=== PATIENT | male | born 1950 | race Caucasian/White ===

== ENCOUNTER 2016-05-15 14:10 | Inpatient (IN) | payer SELFPAY ==
[2016-05-15 15:27] LABS: Alanine Aminotransferase 32 units/L (7-56); Albumin 4.3 g/dL (3.9-5); Albumin/Globulin Ratio 1.3 %; Alkaline Phosphatase 87 units/L (35-129); Bilirubin,Total 0.4 mg/dL (0.1-1.2); Blood Urea Nitrogen 15 mg/dL (9-20); Calcium 9.4 mg/dL (8.4-10.2); Carbon Dioxide 23 mmol/L (22-30); Chloride 96.7 mmol/L (98-107); Glucose 276 mg/dL (75-100); Potassium 4.5 mmol/L (3.6-5.0); Sodium 137 mmol/L (137-145); Total Protein 7.7 g/dL (6.3-8.2)
[2016-05-15 15:28] LABS: Anion Gap 22 mmol/L
[2016-05-15 15:33] LABS: Eosinophils % (Auto) 0.7 % (0.0-4.3); Hemoglobin 14.5 gm/dl (11.8-15.2); Mean Corpuscular HGB Conc 34 % (32-34); Mean Corpuscular Hemoglobin 33 pg (28-32); Mean Corpuscular Volume 95 fl (84-94); Platelet Count 214 K/mm3 (140-440); Red Blood Count 4.45 M/mm3 (3.65-5.03); Red Cell Distribution Width 14.1 % (13.2-15.2); White Blood Count 7.1 K/mm3 (4.5-11.0)
[2016-05-15 15:58] LABS: INR 0.91 (0.87-1.13)
[2016-05-15] MEDS ORDERED: PROVENTIL IH ONE (16:59)
[2016-05-15] MEDS ORDERED: ROCEPHIN/NS 1 GM/50 ML 1 GM/50 ML BAG IV ONE ×2 (16:59→19:14)
[2016-05-15] MEDS ORDERED: NACL 0.9% 1000 ML 1,000 ML IV ONE (16:59)
[2016-05-15] MEDS ORDERED: ZITHROMAX PO ONE (16:59)
--- NOTE | 2016-05-15 17:00 | Emergency Department Report ---
ED General Adult HPI - General Chief complaint: Upper Respiratory Infection Stated complaint: POSS PNUEMONIA Time Seen by Provider: 05/15/16 16:47 Source: patient, family, RN notes reviewed Mode of arrival: Ambulatory Limitations: Language Barrier (patient and family declined formal heavy truck driver. They request to translate for the patient.) - History of Present Illness Initial comments: This is a 66-year-old male, previously unknown to me. Has a past medical history of diabetes. Moved here from [place] approximately 3 weeks ago. History is obtained by speaking to the patient's family and to the patient. Of note, family and patient declined formal heavy truck driver, and a request to translate. Patient presents to the ER complaining of cough, mucus production, shortness of breath subjective fever. Symptoms present for the past 3 days. They are constant. They decrease with rest. They increase with physical exertion. There is no chest pain. Positive mucous production. There is no leg pain. There is no leg swelling. -: Gradual Consistency: intermittent Improves with: rest Worsens with: movement Associated Symptoms: cough, shortness of breath. denies: chest pain - Related Data Allergies Allergy/AdvReac Type Severity Reaction Status Date / Time No Known Allergies Allergy Verified 05/15/16 17:00 ED Review of Systems ROS: Stated complaint: POSS PNUEMONIA Other details as noted in HPI Constitutional: malaise Eyes: denies: eye discharge Respiratory: cough Cardiovascular: denies: chest pain Gastrointestinal: denies: abdominal pain Genitourinary: as per HPI Musculoskeletal: as per HPI Skin: as per HPI Neurological: as per HPI Psychiatric: as per HPI Hematological/Lymphatic: as per HPI ED Past Medical Hx - Past Medical History Hx Diabetes: Yes - Surgical History Past Surgical History?: No - Social History Smoking Status: Former Smoker Substance Use Type: Alcohol ED Physical Exam - General Limitations: Language Barrier General appearance: alert, in no apparent distress - Head Head exam: Present: atraumatic, normocephalic - Eye Eye exam: Present: normal appearance, EOMI. Absent: nystagmus - ENT ENT exam: Present: normal exam, normal orophraynx, mucous membranes moist - Neck Neck exam: Present: normal inspection - Respiratory Respiratory exam: Present: wheezes, rhonchi. Absent: respiratory distress - Cardiovascular Cardiovascular Exam: Present: regular rate, normal rhythm, normal heart sounds. Absent: irregular rhythm, systolic murmur, diastolic murmur, rubs, gallop - GI/Abdominal GI/Abdominal exam: Present: soft, normal bowel sounds. Absent: distended, tenderness, guarding, rebound, rigid, pulsatile mass - Rectal Rectal exam: Present: deferred - Extremities Exam Extremities exam: Present: normal inspection, full ROM, normal capillary refill. Absent: tenderness, pedal edema, joint swelling, calf tenderness - Back Exam Back exam: Present: normal inspection, full ROM. Absent: tenderness, CVA tenderness (R), CVA tenderness (L), muscle spasm, paraspinal tenderness, vertebral tenderness - Neurological Exam Neurological exam: Present: alert, normal gait, other (Extraocular movements intact. Tongue midline. No facial droop. Facial sensation intact to light touch in the V1, V2, V3 distribution bilaterally. 5 and 5 strength in 4 extremities.. Sensation is intact to light touch in 4 extremities.). Absent: motor sensory deficit - Psychiatric Psychiatric exam: Present: normal affect, normal mood - Skin Skin exam: Present: warm, dry, intact, normal color. Absent: rash ED Course Vital Signs 05/15/16 05/15/16 05/15/16 14:29 17:16 17:33 Temperature 98.9 F Pulse Rate 88 Pulse Rate [ 92 H Posterior Bilateral Throughout] Pulse Rate [ Posterior Bilateral] Respiratory 20 Rate Respiratory 20 Rate [Posterior Bilateral Throughout] Respiratory Rate [Posterior Bilateral] Blood Pressure 136/87 Blood Pressure [Left] O2 Sat by Pulse 98 931 H Oximetry 05/15/16 05/15/16 05/15/16 17:50 17:58 18:37 Temperature Pulse Rate 109 H Pulse Rate [ 103 H Posterior Bilateral Throughout] Pulse Rate [ Posterior Bilateral] Respiratory 22 Rate Respiratory 20 Rate [Posterior Bilateral Throughout] Respiratory Rate [Posterior Bilateral] Blood Pressure Blood Pressure 153/88 [Left] O2 Sat by Pulse 93 92 Oximetry 05/15/16 05/15/16 05/15/16 20:07 20:15 20:16 Temperature Pulse Rate Pulse Rate [ Posterior Bilateral Throughout] Pulse Rate [ 98 H 100 H Posterior Bilateral] Respiratory Rate Respiratory Rate [Posterior Bilateral Throughout] Respiratory 22 22 Rate [Posterior Bilateral] Blood Pressure Blood Pressure [Left] O2 Sat by Pulse 93 Oximetry 05/15/16 21:20 Temperature Pulse Rate 100 H Pulse Rate [ Posterior Bilateral Throughout] Pulse Rate [ Posterior Bilateral] Respiratory 22 Rate Respiratory Rate [Posterior Bilateral Throughout] Respiratory Rate [Posterior Bilateral] Blood Pressure Blood Pressure 157/89 [Left] O2 Sat by Pulse 92 Oximetry - Reevaluation(s) Reevaluation #1: 05/15/16 17:07 Differential diagnosis: Bronchitis, hypoglycemia, pneumonia Assessment and plan: 66-year-old male who was sent to the ER from a local clinic for hyperglycemia, pulse ox of 92% on room air, positive fever, chest x- ray that suggests right lower lobe pneumonia. Patient is moderately to severely shortness of breath with minimal physical ambulation. He desaturates when laying flat. ABG is pending. We will treat for presumed community-acquired pneumonia with albuterol, normal saline, ceftriaxone, azithromycin. Blood cultures are ordered. Case is discussed with the Hospital physician, Dr. Iraheta, who accepts the patient to his service. Abnormal EKG appreciated, patient reports no chest pain. Reevaluation #2: 05/15/16 17:45 arterial blood gas demonstrates hypoxemic respiratory failure with a PaO2 of 59, with evidence of mostly compensated respiratory alkalosis, pH is within normal limits, blood PaCO2 is decreased at 29. ED Medical Decision Making - Lab Data Result diagrams: 05/15/16 14:54 05/15/16 14:54 Vital Signs 05/15/16 14:29 Temperature 98.9 F Pulse Rate 88 Respiratory 20 Rate Blood Pressure 136/87 O2 Sat by Pulse 98 Oximetry Lab Results 05/15/16 05/15/16 05/15/16 Range/Units 14:33 14:54 14:54 WBC 7.1 (4.5-11.0) K/mm3 RBC 4.45 (3.65-5.03) M/mm3 Hgb 14.5 (11.8-15.2) gm/dl Hct 42.0 (35.5-45.6) % MCV 95 H (84-94) fl MCH 33 H (28-32) pg MCHC 34 (32-34) % RDW 14.1 (13.2-15.2) % Plt Count 214 (140-440) K/mm3 Lymph % (Auto) 14.7 (13.4-35.0) % Parker % (Auto) 7.0 (0.0-7.3) % Eos % (Auto) 0.7 (0.0-4.3) % Baso % (Auto) 1.0 (0.0-1.8) % Lymph # 1.0 L (1.2-5.4) K/mm3 Parker # 0.5 (0.0-0.8) K/mm3 Eos # 0.0 (0.0-0.4) K/mm3 Baso # 0.1 (0.0-0.1) K/mm3 Seg Neutrophils % 76.6 H (40.0-70.0) % Seg Neutrophils # 5.4 (1.8-7.7) K/mm3 PT 12.2 (12.2-14.9) Sec. INR 0.91 (0.87-1.13) VBG pH (7.320-7.420) Sodium (137-145) mmol/L Potassium (3.6-5.0) mmol/L Chloride (98-107) mmol/L Carbon Dioxide (22-30) mmol/L Anion Gap mmol/L BUN (9-20) mg/dL Creatinine (0.8-1.5) mg/dL Estimated GFR ml/min BUN/Creatinine Ratio % Glucose (75-100) mg/dL POC Glucose 303 H (70-105) Lactic Acid (0.7-2.0) mmol/L Calcium (8.4-10.2) mg/dL Total Bilirubin (0.1-1.2) mg/dL AST (5-40) units/L ALT (7-56) units/L Alkaline Phosphatase (35-129) units/L Total Protein (6.3-8.2) g/dL Albumin (3.9-5) g/dL Albumin/Globulin Ratio % 05/15/16 05/15/16 05/15/16 Range/Units 14:54 14:54 14:54 WBC (4.5-11.0) K/mm3 RBC (3.65-5.03) M/mm3 Hgb (11.8-15.2) gm/dl Hct (35.5-45.6) % MCV (84-94) fl MCH (28-32) pg MCHC (32-34) % RDW (13.2-15.2) % Plt Count (140-440) K/mm3 Lymph % (Auto) (13.4-35.0) % Parker % (Auto) (0.0-7.3) % Eos % (Auto) (0.0-4.3) % Baso % (Auto) (0.0-1.8) % Lymph # (1.2-5.4) K/mm3 Parker # (0.0-0.8) K/mm3 Eos # (0.0-0.4) K/mm3 Baso # (0.0-0.1) K/mm3 Seg Neutrophils % (40.0-70.0) % Seg Neutrophils # (1.8-7.7) K/mm3 PT (12.2-14.9) Sec. INR (0.87-1.13) VBG pH 7.413 (7.320-7.420) Sodium 137 (137-145) mmol/L Potassium 4.5 (3.6-5.0) mmol/L Chloride 96.7 L (98-107) mmol/L Carbon Dioxide 23 (22-30) mmol/L Anion Gap 22 mmol/L BUN 15 (9-20) mg/dL Creatinine 1.0 (0.8-1.5) mg/dL Estimated GFR > 60 ml/min BUN/Creatinine Ratio 15.00 % Glucose 276 H (75-100) mg/dL POC Glucose (70-105) Lactic Acid 2.3 H* (0.7-2.0) mmol/L Calcium 9.4 (8.4-10.2) mg/dL Total Bilirubin 0.4 (0.1-1.2) mg/dL AST 25 (5-40) units/L ALT 32 (7-56) units/L Alkaline Phosphatase 87 (35-129) units/L Total Protein 7.7 (6.3-8.2) g/dL Albumin 4.3 (3.9-5) g/dL Albumin/Globulin Ratio 1.3 % - EKG Data When compared to previous EKG there are: previous EKG unavailable 05/15/16 17:09 normal sinus, 88 bpm, right superior axis deviation, incomplete right bundle branch block, QTC 462 ms, not morphologically consistent with STEMI , abnormal EKG - Radiology Data Radiology results: image reviewed interpreted by me: X-ray chest demonstrates right lower lobe infiltrate. Consistent with pneumonia. Critical care attestation.: If time is entered above; I have spent that time in minutes in the direct care of this critically ill patient, excluding procedure time. ED Disposition Clinical Impression: Dyspnea Qualifiers: Dyspnea type: shortness of breath Qualified Code(s): R06.02 - Shortness of breath Disposition: OP ADMITTED IP TO THIS HOSP Is pt being admited?: Yes Condition: Stable
[2016-05-15 17:40] LABS: ISTAT Base Excess -5; ISTAT DEVICE 0; ISTAT HCO3 19.3; ISTAT PCO2 29.6 (35-45); ISTAT PH 7.421 (7.35-7.45); ISTAT PO2 59 (80-105); ISTAT SO2 91; ISTAT TCO2 20
--- NOTE | 2016-05-15 17:44 | History and Physical Report ---
History of Present Illness Date of examination: 05/15/16 Chief complaint: Cough History of present illness: Patient is 66 -year-old man with history of type 2 diabetes mellitus just moved here from [place] about 3 weeks ago and speaks little Japanese and requests his son to interpret Bahraini. Symptoms started about 3 or 4 days ago with worsening severe constant greenish yellow cough, subjective fevers, chills and shortness of breath. He denies chest pains, severe headaches, nausea, vomiting or abdominal pains. Past History Past Medical History: diabetes, other Past Surgical History: No surgical history Social history: full code (vague history given on alcohol consumption). denies : smoking, prescription drug abuse, IV drug use Family history: no significant family history Medications and Allergies Allergies Allergy/AdvReac Type Severity Reaction Status Date / Time No Known Allergies Allergy Verified 05/15/16 17:00 Active Meds: Active Medications Enoxaparin Sodium (Lovenox) 40 mg SUB-Q QDAY LIDIA Sodium Chloride (Nacl 0.9% 1000 Ml) 1,000 mls @ 999 mls/hr IV ONCE ONE Stop: 05/15/16 17:59 Review of Systems All systems: negative (as HPI and all other ROS reviewed and negative.) Exam - Physical Exam Narrative exam: GEN: WDWN, NAD, AWAKE, ALERT, ORIENTATED HEENT: NCAT, PERRL, EOMI, OP CLEAR NECK: SUPPLE, NO THYROMEGALY, NO JVD, NO LAD CVS: RRR, NORMAL S1S2 LUNGS/CHEST: Bilateral wheezing, coarse breath sounds right base, NORMAL CHEST EXPANSION B, GOOD AIR ENTRY B ABD: SOFT NTND, GBS, NO REBOUND OR GUARDING EXT/SKIN: NO SIGNIFICANT EDEMA OR RASH MSK: FROM X 4 EXTREMITIES NEURO: CN 2-12 GROSSLY INTACT, NO FOCAL DEFICITS PSY: CALM - Constitutional Vitals: Temp Pulse Resp BP Pulse Ox 98.9 F 92 H 20 136/87 931 H 05/15/16 14:29 05/15/16 17:33 05/15/16 17:33 05/15/16 14:29 05/15/16 17:16 Results - Labs CBC & Chem 7: 05/15/16 14:54 05/15/16 14:54 Labs: Abnormal lab results 02/05/17 02/05/17 02/05/17 Range/Units 14:33 14:54 14:54 MCV 95 H (84-94) fl MCH 33 H (28-32) pg Lymph # 1.0 L (1.2-5.4) K/mm3 Seg Neutrophils % 76.6 H (40.0-70.0) % Chloride 96.7 L (98-107) mmol/L Glucose 276 H (75-100) mg/dL POC Glucose 303 H (70-105) Lactic Acid (0.7-2.0) mmol/L 05/15/16 Range/Units 14:54 MCV (84-94) fl MCH (28-32) pg Lymph # (1.2-5.4) K/mm3 Seg Neutrophils % (40.0-70.0) % Chloride (98-107) mmol/L Glucose (75-100) mg/dL POC Glucose (70-105) Lactic Acid 2.3 H* (0.7-2.0) mmol/L Assessment and Plan Patient is 66 -year-old man with history of type 2 diabetes mellitus just moved here from [place] about 3 weeks ago and speaks little Japanese and requests his son to interpret Bahraini. Symptoms started about 3 or 4 days ago with worsening severe constant greenish yellow cough without aggravating or relieving factors associated with subjective fevers, chills and shortness of breath. He denies chest pains, severe headaches, nausea, vomiting or abdominal pains. 1. RLL pneumonia, viewed with ED physician, possible early sepsis: admit, iv abx , 2. Uncontrolled type 2 dm: add ssi
[2016-05-15] MEDS ORDERED: D50W (25GM) IV PRN (17:48)
[2016-05-15] MEDS ORDERED: MUCINEX ER PO PRN (17:49)
[2016-05-15] MEDS ORDERED: ZOFRAN IV PRN (17:50)
[2016-05-15] MEDS ORDERED: TYLENOL PO PRN (17:50)
--- NOTE | 2016-05-15 17:50 | XRay Report ---
FINAL REPORT PROCEDURE: XR CHEST ROUTINE 2V TECHNIQUE: PA and lateral chest radiographs were obtained. CPT 93700 HISTORY: r/o pnuemonia COMPARISON: No prior studies are available for comparison. FINDINGS: Heart: Normal contour. Mediastinum/Vessels: Prominent central vessels. Lungs/Pleural space: Patchy right lung base airspace atelectasis or infiltrate. No effusion or pneumothorax is seen Bony thorax: No acute osseous abnormality. Other: IMPRESSION: Patchy right lung base atelectasis or infiltrate.
[2016-05-15] MEDS ORDERED: REGLAN IV PRN (17:51)
[2016-05-15] MEDS ORDERED: NACL 0.9% 1000 ML 1,000 ML IV SCH (18:00)
[2016-05-15 18:51] LABS: Creatine Kinase MB 1.6 ng/mL (0.0-4.0)
[2016-05-15 18:52] LABS: Creatine Kinase 77 units/L (55-170)
[2016-05-15] MEDS ORDERED: ZITHROMAX ONE (19:15)
[2016-05-15] MEDS ORDERED: NACL 0.9% 1000 ML 1,000 ML ONE (19:15)
[2016-05-15] MEDS: DUONEB 0.5 MG-3 MG/3 ML SOLN IH SCH (20:07)
[2016-05-15] MEDS: NOVOLOG SUB-Q SCH (21:30)
[2016-05-16 00:49] LABS: Creatine Kinase 84 units/L (55-170); Creatine Kinase MB 1.2 ng/mL (0.0-4.0)
[2016-05-16 04:50] LABS: Bilirubin,Urine Negative (Negative); Blood,Urine Trace (Negative); Ketones,Urine Trace mg/dL (Negative)
[2016-05-16 04:51] LABS: Leukocyte Esterase,Urine Negative (Negative); Nitrite,Urine Negative (Negative)
[2016-05-16 07:12] LABS: Hematocrit 38.3 % (35.5-45.6); Mean Corpuscular HGB Conc 34 % (32-34); Mean Corpuscular Hemoglobin 32 pg (28-32); Mean Corpuscular Volume 94 fl (84-94); Platelet Count 189 K/mm3 (140-440); Red Blood Count 4.08 M/mm3 (3.65-5.03); Red Cell Distribution Width 14.1 % (13.2-15.2); White Blood Count 5.8 K/mm3 (4.5-11.0)
[2016-05-16 07:30] LABS: BUN/Creatinine Ratio 14.44; Blood Urea Nitrogen 13 mg/dL (9-20); Calcium 8.6 mg/dL (8.4-10.2); Carbon Dioxide 20 mmol/L (22-30); Chloride 99.5 mmol/L (98-107); Glucose 265 mg/dL (75-100); Potassium 3.7 mmol/L (3.6-5.0); Sodium 138 mmol/L (137-145)
[2016-05-16 07:37] LABS: Anion Gap 22 mmol/L
[2016-05-16] MEDS: DUONEB 0.5 MG-3 MG/3 ML SOLN IH SCH ×2 (07:44→13:30)
[2016-05-16] MEDS: NOVOLOG SUB-Q SCH ×3 (08:54→17:20)
--- NOTE | 2016-05-16 09:10 | Admit Criteria Form ---
Admission Criteria Documentation: PNEUMONIA, COMMUNITY ACQUIRED Clinical Indications for Admission to Inpatient Care ( Place 'X' for any and all applicable criteria): Admission is indicated for ANY ONE of the following (1)(2)(3): [X]I. Hypoxemia indicated by ANY ONE of the following: [X]a) Oxygen saturation less than 90% while breathing room air [X]b) PO2 less than 60 mm Hg (8.0 kPa) while breathing room air [ ]c) Chronic lung disease with significant deterioration from baseline oxygenation [X]II. Appropriate diagnostic testing and treatment unavailable in outpatient or recovery facility (eg,testing or infection control measures unavailable(10) [ ]III. Moderate-risk or high-risk category patients (Pneumonia Severity Index (PSI) class IV or V, or CURB-65 score of 3 or greater). [ ]IV. Outpatient treatment failure as indicated by ANY ONE of the following(9) : [ ]a) Failure to respond to antibiotic (eg, resistant organism) [ ]b) Clinically significant adverse effects from medication (eg, vomiting) [ ]c) Complications of pneumonia (eg, empyema, bacteremia) [ ]d) Significant worsening of comorbid cond necessitating inpatient care (eg, chronic heart failure) [ ]V. Intermediate-risk category patients (eg, PSI class III or CURB-65 score 2) who do not improve with initial therapy and observation. [ ]. Immunocompromised patients (eg, AIDS, chronic steroid use) at moderate or high risk based on clinical evaluation. [ ]VII. Complicated pleural effusions (eg, exudative, loculated) [ ]VIII.Hemodynamic instability [ ] IX. Altered mental status that is severe or persistent. [ ]X. Dehydration that is severe or persistent. [ ]XI. Bacteremia [ ]XII. Respiratory finding (eg. tachypnea) that do not respond to outpatient or observation care treatment Extended stay beyond goal length of stay may be needed for (20) [ ]a) Unclear diagnosis [ ]b) Pleural disease [ ]c) Severe pneumonia or treatment failure (25 [ ]d) Respiratory failure (anticipate invasive or noninvasive ventilatory support) [ ]e) Abnormal serum electrolytes (serum Na concentration less than 135 mEq/L (mmol/L) (32)(33) [ ]f) Clinically significant comorbid illness (eg, heart failure, atrial fibrillation with rapid heart rate, alcohol withdrawal, renal insufficiency)(34)(35) [ ]g) Comorbid acute exacerbation of COPD(36) [ ]h) Concomitant diagnosis of malignancy that may be associated with malnutrition, immunologic impairment, or bronchial obstruction. [ ]i) Concomitant altered mental status [ ]j) Culture-identified Gram-negative or antibiotic-resistant organism (eg, Pseudomonas, methicillin-resistant Staphylococcus aureus)(30) [ ]k) Healthcare-associated pneumonia The original [employer] content created by [employer] has been revised. The portions of the content which have been revised are identified through the use of italic text or in bold, and [facility] has neither reviewed nor approved the modified material. All other unmodified content is copyright [facility]. Please see references footnoted in the original [facility] edition 2016 Admission Criteria Met: Yes
[2016-05-16] MEDS ORDERED: ZITHROMAX 500 MG in NACL 0.9% 250ML 250 ML IV SCH (10:00)
[2016-05-16] MEDS ORDERED: PROTONIX PO SCH (10:00)
[2016-05-16] MEDS ORDERED: ROCEPHIN/NS 1 GM/50 ML 1 GM/50 ML BAG IV SCH (10:00)
--- NOTE | 2016-05-16 10:24 | Discharge Summary ---
Providers - Providers Date of Admission: 05/15/16 18:30 Attending physician: JESUS SPAIN Primary care physician: CABRERA CHRIS MD Hospitalization Condition: Stable Disposition: STILL A PATIENT Exam - Constitutional Vitals: Temp Pulse Resp BP Pulse Ox 99.0 F 87 22 105/72 96 05/16/16 08:05 05/16/16 08:05 05/16/16 08:05 05/16/16 08:05 05/16/16 08:05 Plan Follow up with: CABRERA CHRIS MD [Primary Care Provider] - 3-5 Days
[2016-05-16 16:31] VITALS: BP 107/73
[2016-05-16] MEDS ORDERED: LOVENOX SUB-Q SCH (22:00)
== END 2016-05-16 18:00 | disposition home or self-care (01) | DRG 195 ==
LOC: EDSEX → ED 14:10 → 3A 18:30
PROVIDERS: ADMIT Internal Medicine; ATTEND Internal Medicine
DX: J18.9 Pneumonia, unspecified organism (principal); E11.65 Type 2 diabetes mellitus with hyperglycemia
CPT/HCPCS: 36415; 71020; 80048; 80053; 81001; 82140; 82550; 82553; 82803; 82805; 82962; 84484; 85025; 85027; 85610; 87040; 87086; 93005; 93010; 94640; 94644; 94760; 96365; J0456; J0696; J1815; J7030; J7050